=== PATIENT | male | born 1960 | race Caucasian/White ===

== ENCOUNTER 2018-10-31 11:38 | Day surgery (SDC) | payer OTHER, SELFPAY ==
--- NOTE | 2018-10-31 | GASB_PTH ---
PATIENT: KAMILLA DESAI II LOC: EN U#:[id number] AGE/SX: 57/M ROOM: RE10/31/[address]: Dr. Lorraine Sanders MD : 1960 BED: DIS: 10/31/2018 SPEC #: [id number] RECD: 10/31/18 13:59 STATUS: MAGDALENE REDemario #: [id number] CARMELINA: 10/31/18 00:[address]: Lorraine Sanders DEPT: SURGICAL PATHOLOGY RECD BY: Adrian Johnson ENTERED: 10/31/18 13:59 SP TYPE: Gastric Bx OTHR DR: MD Lalit Rose MD Tissues: A - Gastric mucous membrane B - Gastric mucous membrane Procedures: Special Stain Group II Surgery Specimen Level IV Alcian Blue/PAS (control) HEADER OPERATION[place] [place] DIAGNOSIS: Melena, lower abdomen pain, nausea, weakness, constipation TISSUE SUBMITTED: A - Antrum biopsy for H. pylori and path, B - GE junction biopsy MICROSCOPIC DIAGNOSIS A. Antrum biopsy: Mild gastritis. See microscopic description and comment. B. GE junction, biopsy: A fragment of gastroesophageal mucosa with extensive intestinal metaplasia (goblet cell metaplasia), consistent with Mendez's esophagus. Mild chronic inflammation. See comment. SJ:rg 11/01/18 COMMENT A. The results of immunohistochemistry for Helicobacter pylori will be reported separately ([id number]). B. Alcian blue/PAS stain with matched control is used in the evaluation of the specimen. MICROSCOPIC DESCRIPTION Slides are reviewed. A. The specimen shows fragments of gastric mucosa with chronic inflammatory cell infiltrates in the lamina propria consisting of lymphocytes and plasma cells, consistent with mild chronic gastritis. Mild increase of eosinophils are also noted. GROSS DESCRIPTION A - Received in fixative is one container labeled with the patient's name and designated antrum biopsy. The specimen consists of multiple irregular fragments of light hughes soft tissue that in aggregate measure 0.6 x 0.2 x 0.1 cm. The specimen is totally submitted in one cassette. B - Received in fixative is one container labeled with the patient's name and designated GE junction biopsy. The specimen consists of one irregular fragment of light hughes soft tissue that measures 0.3 x 0.3 x 0.1 cm. The specimen is totally submitted in one cassette. / AM:luisana 10/31/18 TC:3 CPT: 66775 x2, 72581
--- NOTE | 2018-10-31 11:09 | HP.PCM_ITS ---
History and Physical Date of Admission: 10/31/18 Figueroa Chavez II 1960 ? ? REFERRING PHYSICIAN: Cadence Alicea ([facility]), * ? CHIEF COMPLAINT: Consult (Consult Epigastric pain) ? HPI: The patient is a 57 year old male is referred for epigastric abdominal pain. However, upon questioning in this patient encounter, the patient points to lower abdominal pain - which he describes as crampy in nature. Also notes dark stools, he describes as dark and tarry. Also with complaint of nausea, denies emesis. Has bowel movements about 1-2 days, this is not regular for him. He interjects this patient encounter with statements that his hours have increasd at work from 8-10 hours. And that he feels that his body is not adjusting to this changes. This was about a month ago. Also notes headache and lower back pain - has noted this with his changes in work hours. Has had bleeding PUD in the past, found by EGD in 1999. Had colonoscopy in 2012. Complains of acid indigestion, is taking an antacid. Denies fevers. Denies weight loss. ? ? PAST MEDICAL HISTORY ? Allergic rhinitis, cause unspecified ? ? Extrinsic asthma, unspecified ? ? GERD (gastroesophageal reflux disease) ? ? Uses prn omeprazole ? PAST SURGICAL HISTORY ? COLONOSCOP W/ [place] W/O [facility] SPEC ? 09/12/12 ? normal colonoscopy - 10 year follow up ? LAP REPAIR INTIAL INGUINAL HERNIA ? 11/25/05 ? LEFT ? REPAIR UMBILICAL CAROLYN,5+Y/O,REDUC ? 11/25/05 ? REPAIR UMBILICAL CAROLYN,5+Y/O,REDUC ? 11/25/05 ? Hernia repair, umbilical >5yr ? VASECTOMY ? 2002 ? ? Current Outpatient Medications: Omeprazole 40 mg capsule Take 1 capsule by mouth once daily. mometasone (ASMANEX TWISTHALER) 110 mcg (30 doses) twisthaler Inhale 1 Puff as instructed once daily. albuterol HFA (PROVENTIL HFA) 90 mcg/actuation inhaler 2 PUFFS EVERY 4 HOURS NEEDED FOR COUGH, WHEEZING OR SHORTNESS OF BREATH MULTIVITAMIN ORAL Take 1 tablet by mouth once daily. omeprazole(PRILOSEC 20 MG CAP) Take one(1) capsule Tuesday, Tuesday and Tuesday and as needed. ? ? ALLERGIES: Environmental [Other] ? PERSONAL HISTORY: Social History Socioeconomic History Marital status: Spouse name: Not on file Number of children: Not on file Years of education: Not on file Highest education level: Not on file Occupational History Not on file Social Needs Financial resource strain: Not on file Food insecurity: Worry: Not on file Inability: Not on file Transportation needs: Medical: Not on file Non-medical: Not on file Tobacco Use Smoking status: Never Smoker Smokeless tobacco: Never Used Tobacco comment: No one in household smokes Substance and Sexual Activity Alcohol use: No Drug use: No Sexual activity: Not on file Lifestyle Physical activity: Days per week: Not on file Minutes per session: Not on file Stress: Not on file Relationships Social connections: Talks on phone: Not on file Gets together: Not on file Attends yarsanism service: Not on file Active member of club or organization: Not on file Attends meetings of clubs or organizations: Not on file Relationship status: Not on file Intimate partner violence: Fear of current or ex partner: Not on file Emotionally abused: Not on file Physically abused: Not on file Forced sexual activity: Not on file Other Topics Concerns: Not on file Social History Narrative Not on file FAMILY HISTORY ? None Father ? ? Heart Mother ? ? ? REVIEW OF SYSTEMS: General: The patient denies fatigue, denies weight loss, denies weight gain, denies feeling hot, and denies feelings of cold. Eyes: The patient denies glaucoma, denies eye injury/surgery, wears glasses or contacts. Ear/Nose/Throat: The patient NOTES allergies, denies hayfever, denies ear infections, and denies bloody noses. Cardiovascular: The patient denies chest pain, denies heart disease, NOTES blood pressure,denies cardiac stent, denies prior heart attack, denies irregular heart beat, denies high cholesterol, denies poor circulation, denies heart failure, other cardiac issues, denies claudication, denies cold feet, denies peripheral arterial stent. Respiratory: The patient denies tuberculosis, denies pneumonia, denies frequent cough, denies pulmonary embolism, denies shortness of breath, and denies coughing up blood. Gastrointestinal: The patient denies difficulty swallowing, denies acid reflux, denies ulcers, denies vomiting, denies jaundice/hepatitis, denies gallbladder problems, denies black or tarry stools, denies hemorrhoids, denies bleeding from rectum, denies diverticulitis, denies constipation, denies diarrhea, denies loss of stool control, and NOTES hernias. Kidney/Bladder: The patient denies kidney stones, denies urine infections, and denies bloody urine. Skin: The patient denies a history of skin cancer, denies bleed ing/changing moles, and denies a history of skin rash. Neurologic: The patient denies a history of epilepsy/convulsions, denies headaches, denies head/spinal injuries, and denies stroke/TIA. Psychiatric: The patient denies psychiatric medications, denies depression, and denies voices, denies substance abuse. Endocrine: The patient denies thyroid disorders, denies diabetes, and de nies hormonal problems. Hematologic: The patient denies a history of bruising, denies bleeding, and denies anemia, denies blood clots. Infections: The patient NOTES a history of measles and mumps, denies rheumatic fever, and denies sexually transmitted diseases. Musculoskeletal: The patient denies back pain/injury, denies back problems, NOTES sciatica, denies knee/foot trouble, NOTES arthritis, or denies gout. ? PHYSICAL EXAMINATION: General: The patient is 57 year old male, well nourished, well hydrated in no acute distress. The patient is oriented to time, place, and person. VITALS: Blood pressure 164/92, pulse 68, temperature 36.7 ?C (98 ?F), height 172.7 cm (5' 8), weight 78.2 kg (172 lb 6.4 oz), SpO2 96 %. Body mass index is 26.21 kg/m?. Head ? Normocephalic. EOM intact with sclera clear and no icterus noted. Wearing glasses. Mouth with mucus membranes moist. Neck - supple with no jugular venous distention noted. Trachea is midline. Lungs ? clear to auscultation.. Normal breath sounds. No rales/rhonchi/wheezing noted. No labored breathing noted, such as retractions. No cough heard. Heart ? normal S1 and S2 auscultated. No rubs/clicks/murmurs noted. Regular rate. Abdomen ? soft and benign. Normal bowel sounds . Extremities ? no calf tenderness noted. No pitting edema noted. Skin ? normal skin integrity. Neurological ? gait normal, no focal deficits noted. Psych ? calm and appropriate ? ? IMPRESSION: Melena, Lower abdominal pain, Nausea, weakness, constipation ? PLAN: I have discussed the above with the patient. I have offered esophagogastroduodenoscopy and colonoscopy, possible biopsies, for evaluation. I have explained the procedure to the patient. I have counseled the patient as to the risks of the procedure, including but not limited to: infection, bleeding, perforation of the GI tract, injury to any intraabdominal organs such as the liver/spleen, inability to complete the procedure, complications of anesthesia, etc. ? the patient understands. The patient wishes to proceed. Needs MAC endo I have answered all questions to the patient?s satisfaction and the patient has no further questions. ? . Diagnoses: (K92.1) Melena (primary encounter diagnosis) (R10.30) Lower abdominal pain (R11.0) Nausea (R53.1) Weakness (K59.00) Constipation, unspecified constipation type Return to Clinic: The patient is instructed to follow-up with me after the procedure as per needed.
[2018-10-31 12:21] VITALS: BP 138/89; PULSE 69; RESP 15; TEMP 36.9; O2SAT 100; BMI 25.7
[2018-10-31] MEDS: Lactated Ringers 1,000 ML 100 ML IV (12:36)
--- NOTE | 2018-10-31 13:00 | IMM_PTH ---
PATIENT: KAMILLA DESAI II LOC: EN U#:[id number] AGE/SX: 57/M ROOM: RE10/31/[address]: Dr. Lorraine Sanders MD : 1960 BED: DIS: 10/31/2018 SPEC #: [id number] RECD: 11/01/18 10:45 STATUS: MAGDALENE REQ #: [id number] CARMELINA: 10/31/18 13:[address]: Lorraine Sanders DEPT: IMMUNOHISTOCHEMISTRY RECD BY: Dionne Sotomayor ENTERED: 11/01/18 10:46 SP TYPE: IMMUNO OTHR DR: MD Lalit Rose MD Tissues: A - Stomach, NOS Procedures: H Pylori (initial) PHYSICIAN & INSTITUTION [place] [id number] SPECIMEN INFORMATION: Tissue Source: A - Antrum biopsy Clinical Info: Melena, lower abdomen pain, nausea, weakness, constipation Specimen Number: [id number] CPT code: 69188 METHODOLOGY: Deparaffinized sections of prefer/formalin-fixed tissue or PAP/DQ stained slides are incubated with monoclonal/polyclonal antibodies/oligonucleotide probes. Localization is made via biotin free immunoperoxidase method. Appropriate controls are performed and reacted as expected. Results on target cell population are indicated in the following table: RESULTS: ANTIBODY / CLONE RESULT Block A H Pylori (polyclonal) negative These tests were developed and their performance characteristics determined by [facility]. They may not have been cleared or approved by the U.S. Food and Drug Administration. The FDA has determined that such clearance or approval is not necessary. INTERPRETATION: A. Antrum biopsy: Negative for Helicobacter pylori organisms. SJ:luisana 11/02/18
[2018-10-31 13:25] VITALS: BP 138/89; BP 89/62; PULSE 59; RESP 18; TEMP 36.3; O2SAT 99
--- NOTE | 2018-10-31 13:29 | OP.ENDO_ITS ---
10/31/2018 Bin[address] Denise [address] [place] [address] Re : Upper GI endoscopy procedure for Figueroa Chavez Dear Dr. Denise This procedure was performed on Wednesday, October 31, 2018. My impressions and recommendations are as follows: Impressions : - Normal first portion of the duodenum and second portion of the duodenum. - Normal stomach. Biopsied for histology and H pylori - Small hiatal hernia. Esophagus biopsied. Recommendations : - Discharge patient to home (ambulatory). - Resume previous diet. - Continue present medications - you must be on an antacid every day. - Await pathology results. - My office will telephone with pathology results in 1-2 weeks My findings are described in the full procedure note, which is enclosed. If I can be of further assistance, please feel free to contact me at Doctor phone number(s): , Work: . Sincerely, MD Lorraine Mosqueda MD 10/31/2018 1:29:21 PM This report has been signed electronically.
[2018-10-31 13:30] VITALS: BP 100/72; BP 138/89; PULSE 52; RESP 18; O2SAT 99
--- NOTE | 2018-10-31 13:32 | OP.ENDO_ITS ---
10/31/2018 [address] Denise [address] [place] [address] Re : Colonoscopy procedure for Figueroa Chavez Dear Dr. Denise This procedure was performed on Wednesday, October 31, 2018. My impressions and recommendations are as follows: Impressions : - Preparation of the colon was fair. - Non-bleeding internal hemorrhoids. - No specimens collected. Recommendations : - Repeat colonoscopy in 10 years for screening purposes. - Return to primary care physician PRN. - Continue present medications. My findings are described in the full procedure note, which is enclosed. If I can be of further assistance, please feel free to contact me at Doctor phone number(s): , Work: . Sincerely, MD Lorraine Mosqueda MD 10/31/2018 1:32:35 PM This report has been signed electronically.
[2018-10-31 13:35] VITALS: BP 110/71; BP 138/89; PULSE 53; RESP 18; O2SAT 98
[2018-10-31 13:40] VITALS: BP 115/79; BP 138/89; PULSE 47; RESP 18; TEMP 36.5; O2SAT 100
[2018-10-31 14:10] VITALS: BP 138/89
== END 2018-10-31 14:11 | disposition home or self-care (01) ==
LOC: EN 11:44 → AC 11:53
PROVIDERS: Family Provider Family Medicine; PCP Family Medicine; Referring Provider Family Medicine; Visit Provider Surgery
PROC: 0DJD8ZZ Inspection of Lower Intestinal Tract, Via Natural or Artificial Opening Endoscopic (ICD-10-PCS; CPT 45378; principal; 2018-10-31 12:55)
DX: K29.70 Gastritis, unspecified, without bleeding (principal); K44.9 Diaphragmatic hernia without obstruction or gangrene; K21.0 Gastro-esophageal reflux disease with esophagitis; K64.8 Other hemorrhoids; K59.00 Constipation, unspecified; K92.1 Melena; R53.1 Weakness; I10 Essential (primary) hypertension; J45.909 Unspecified asthma, uncomplicated; Z79.899 Other long term (current) drug therapy; Z87.11 Personal history of peptic ulcer disease
CPT/HCPCS: 43239; 45378; 88305; 88313; 88342; J7120; J2405